=== PATIENT | male | born 1980 | race Caucasian/White ===

== ENCOUNTER 2018-09-01 20:31 | Emergency (ER) | payer OTHER ==
[~2018-09-01] VITALS: Ht 177.8 cm; Wt 88.9 kg
[2018-09-01 20:40] VITALS: Ht 177.8 cm; Wt 88.9 kg
[2018-09-01 22:07] VITALS: BP 142/92
== END 2018-09-01 22:08 | disposition home or self-care (01) ==
LOC: ED 20:31
DX: S62.336A Displaced fracture of neck of fifth metacarpal bone, right hand, initial encounter for closed fracture (principal); W22.8XXA Striking against or struck by other objects, initial encounter; Y93.67 Activity, basketball; Y92.310 Basketball court as the place of occurrence of the external cause; Y99.8 Other external cause status